=== PATIENT | male | born 1985 | race Caucasian/White ===

== ENCOUNTER → 2024-05-22 09:52 | Outpatient (CLI) | payer OTHER, SELFPAY ==
--- NOTE | 2024-05-22 09:57 | DI.RAD.S_ITS ---
PROCEDURE: XR ANKLE LT MIN 3V INDICATIONS: Pathological fracture, unspecified site, initial encounter f TECHNIQUE: 3 views of the ankle were acquired. COMPARISON: None. FINDINGS: Bones: No fractures or dislocations. Ankle mortise is normally aligned. No suspicious bony lesions. Soft tissues: Mild ankle soft tissue swelling. No tibiotalar joint effusion. Achilles tendon appears normal. IMPRESSION: No acute ankle fracture or dislocation. Mild ankle soft tissue swelling. Ankle mortise is congruent. Dictated by: Gómez Bui M.D. on 05/22/2024 at 11:55 Approved by: Gómez Bui M.D. on 05/22/2024 at 11:58
== END ==
PROVIDERS: Referring Provider Chiropractor; Visit Provider Chiropractor
DX: M84.40XA Pathological fracture, unspecified site, initial encounter for fracture (principal); M25.472 Effusion, left ankle
CPT/HCPCS: 73610